=== PATIENT | male | born 1985 | race Caucasian/White ===

== ENCOUNTER → 2021-02-01 14:45 | Outpatient (CLI) | payer OTHER, MEDICAID, SELFPAY ==
[2021-02-01 16:27] LABS: Cholesterol 225 mg/dL (140-199); HDL Cholesterol 44 mg/dL (40-60); LDL Cholesterol Calculated 156 mg/dL (<100); Triglycerides 123 mg/dL (35-150)
== END ==
PROVIDERS: PCP Student in an Organized Health Care Education/Training Program; Referring Provider Student in an Organized Health Care Education/Training Program; Visit Provider Student in an Organized Health Care Education/Training Program
DX: Z13.220 Encounter for screening for lipoid disorders (principal)
CPT/HCPCS: 36415; 80061